=== PATIENT | female | born 1990 | race Caucasian/White ===

== ENCOUNTER → 2018-10-20 | Outpatient (CLI) | payer OTHER | LOC: FIMAGING 11:13 | PROVIDERS: ATTEND Advanced Practice Midwife | DX: Z34.93 Encounter for supervision of normal pregnancy, unspecified, third trimester (principal); Z3A.35 35 weeks gestation of pregnancy ==

== ENCOUNTER 2018-11-07 21:37 | Inpatient (IN) | payer OTHER ==
[2018-11-07] MEDS ORDERED: OXYTOCIN/RINGERS LACTATE 1,000 ML IV PRN (23:02)
[2018-11-07] MEDS ORDERED: OLIVE OIL 118 ML BTL MISC PRN (23:02)
[2018-11-07] MEDS ORDERED: LIDOCAINE 1% 300 MG/30 ML SDV SC PRN (23:02)
[2018-11-07] MEDS ORDERED: IBUPROFEN 600 MG TAB PO PRN (23:02)
[2018-11-07] MEDS ORDERED: MISOPROSTOL 200 MCG TAB PR PRN (23:02)
[2018-11-07] MEDS ORDERED: TERBUTALINE SULFATE 1 MG/ML VIAL IV PRN (23:02)
[2018-11-07] MEDS ORDERED: LR 1,000 ML IV PRN (23:02)
[2018-11-07] MEDS ORDERED: EPSOM SALT 454 GM TP PRN (23:02)
[2018-11-07 23:25] LABS: PLATELET COUNT 291 10^3/uL (150-400)
[2018-11-07] MEDS ORDERED: fentaNYL 2MCG/ML/BUP 0.1% RTU 100 ML BAG EP ONE (23:53)
--- NOTE | 2018-11-08 | PDGENHP ---
History and Physical History and Physical: Care: [facility] HPI: Patient is a 28 yo G 6 P 3 @ 38.4 weeks that presents to L&D with complaints of strong uterine contractions since 1900. She reports prodromal labor for past several days. EDC: 11/18/18 which is based on LMP: 02/03/18 which is known and consistent with Ultrasound at 6 weeks. Her is complicated by: use of tramadol. Review of Systems: Constitutional: Denies any fever, chills, or fatigue HEENT: denies any visual changes, difficulty swallowing, hearing loss Cardiovascular: Denies any chest pain, palpitations, leg swelling Respiratory: denies any cough, wheezing, or shortness of breathe GI: Denies any nausea, vomiting, diarrhea, constipation : denies any dysuria, urgency, frequency, vaginal bleeding Musculoskeletal: denies any muscle or bone pain Skin: denies any rashes Neuro: denies any headache, seizures, lightheadedness, dizziness, or loss of consciousness Psychiatric: denies any depression, anxiety, or SI/HI thoughts HISTORY: Previous OB history: 2008-05#, SAB, 2009 SAB, 2011-06# , # complicated by pelvic fracture with delivery Past medical history: endometriosis, PCOS, migraines, chronic UTIs, kidney stones, anxiety Past surgical history: explor lap 2009 for endometriosis, explor lap 2015 for hydrosalpinx. Social: Denies any alcohol, tobacco, or drug use. Family history: Father has HTN and diabetes, clotting disorder, mother and grandmother thyroidism Medications: PNV, tramadol Allergies (list reaction): NKDA LABS: Rh: A + ABS: Neg Rubella: Immune HbsAg: NR HIV: NR VDRL: NR 1hr: 77 GC: Neg Chlamydia: Neg Pap: Normal GBS: neg BMI: (prepreg) 25.2 PHYSICAL EXAM: Constitutional: WN, A&Ox3 HEENT: normocephalic atraumatic, supple Skin: Warm, dry, intact Heart: RRR, no murmur Chest: CTA-B Abdomen: Soft, nontender, gravid SVE: 4-5 per RN Extremities: trace edema, negative homans sign Neuro: grossly normal Psych: normal affect assessment: FHT baseline 125, +accels, no decels, moderate variability Contractions: toco q 2-3 min Assessment: 1) 28 yo G 6 P 3 with IUP@ 38.4 2) spontaneous labor 3) GBS neg 4) Cat 1 FHR tracing Plan: 1) Admit to L&D 2) Anticipate
[2018-11-08] MEDS ORDERED: LIDOCAINE 1% 300 MG/30 ML SDV ONE (00:20)
[2018-11-08] MEDS ORDERED: OLIVE OIL 118 ML BTL ONE (00:20)
[2018-11-08] MEDS ORDERED: AMMONIA AROMATIC 1 EACH AMP IH ONE (00:21)
[2018-11-08] MEDS ORDERED: OXYTOCIN 10 UNIT/ML VIAL ONE (00:21)
[2018-11-08] MEDS ORDERED: MISOPROSTOL 200 MCG TAB ONE (00:21)
[2018-11-08] MEDS ORDERED: TERBUTALINE SULFATE 1 MG/ML VIAL ONE (00:21)
--- NOTE | 2018-11-08 00:32 | PREANESOB ---
Obstetric Pre-Anesthesia Info - General Info Proposed Procedure: PETER for NPO Start Time: 14:00 (no solids after 14:00) : 6 Para: 3 BRIDGER: 11/18/18 Gestational Age: 38 week(s) and 3 day(s) - Info Status: Full Term Monitors: External FHR Pattern: Reassuring - Labor Status Magnesium Sulfate in Use: No Indications for Labor Analgesia: Pain Control Labor Epidural: Proposed Anesthesia ROS: h/o pelvic fx/pain after last labor. Worried about pelvic pain with pushing. Does not want much epidural block for labor, but wants a dense block for pushing. h/o anxiety, UTIs, kidney stones. No URI x2 weeks. Allergies/Adverse Reactions: Allergy/AdvReac Type Severity Reaction Status Date / Time No Known Allergies Allergy Unverified 11/07/18 21:57 Visit Medications: Generic Name Dose Route Start Last Admin Trade Name Freq PRN Reason Stop Dose Admin Lactated Ringer's 1,000 mls @ 0 mls/hr 11/07/18 23:02 Lr IV 11/08/18 23:01 PRN PRN SEE PROTOCOL CONDITIONS Protocol Per Protocol Oxytocin/Lactated Ringer's 1,000 mls @ 125 mls/hr 11/07/18 23:02 Pitocin 20 Units/Lr (Premix) IV PRN PRN Post bleeding Ibuprofen 600 mg 11/07/18 23:02 Motrin PO ONCE PRN post , pain Lidocaine HCl 300 mg 11/07/18 23:02 Lidocaine Hcl 1% SC 05/06/19 23:01 ONCE PRN episiotomy Magnesium Sulfate 454 gm 11/07/18 23:02 Epsom Salt TP 05/06/19 23:01 Q1H PRN perineal discomfort Misoprostol 800 - 1,000 mcg 11/07/18 23:02 Cytotec RI ONCE PRN Vaginal Atony/Bleeding Ahmeek Oil 118 ml 11/07/18 23:02 Sweet Oil MISC 05/06/19 23:01 ONCE PRN perineal massage Terbutaline Sulfate 0.25 mg 11/07/18 23:02 Brethine IV 05/06/19 23:01 ONCE PRN Tachysystole Discontinued Medications Generic Name Dose Route Start Last Admin Trade Name Freq PRN Reason Stop Dose Admin Ammonia (Aromatic Spirit) Confirm 11/08/18 00:21 Ammonia Aromatic Administered 11/08/18 00:22 Dose 1 each IH .STK-MED ONE Fentanyl/Bupivacaine HCl Confirm 11/07/18 23:53 Fentanyl/Bupivacaine/Ns 2 Mcg/Ml 0.1% (Premix Administered 11/07/18 23:54 Dose 100 ml EP .STK-MED ONE Lidocaine HCl Confirm 11/08/18 00:20 Lidocaine Hcl 1% Administered 11/08/18 00:21 Dose 300 mg .ROUTE .STK-MED ONE Misoprostol Confirm 11/08/18 00:21 Cytotec Administered 11/08/18 00:22 Dose 1,000 mcg .ROUTE .STK-MED ONE Ahmeek Oil Confirm 11/08/18 00:20 Sweet Oil Administered 11/08/18 00:21 Dose 118 ml .ROUTE .STK-MED ONE Oxytocin Confirm 11/08/18 00:21 Pitocin Administered 11/08/18 00:22 Dose 40 unit .ROUTE .STK-MED ONE Terbutaline Sulfate Confirm 11/08/18 00:21 Brethine Administered 11/08/18 00:22 Dose 1 mg .ROUTE .STK-MED ONE - Anesthesia History Response to Local Anesthetics: Normal Anesthesia & Operative History: No Prior Problems Family Anesthesia History: Negative - Social History Substance Use/Abuse: Denies - Vital Signs Latest Vital Signs (Nursing): See nursing flowsheet Height/Weight (Nursing): Height 162.56 cm Weight 88.904 kg Weight: 89 kg Height: 163 cm - Focused Exam Neck exam: FROM Mallampati Score: Class 2 Mouth exam: normal dental/mouth exam Pulmonary: clear to auscultation Cardiovascular: regular rate and rhythym Labs: 11/07/18 23:16 Patient ABO/Rh A POSITIVE 11/07/18 23:16 - Plan Anesthetic Plan: PETER Consent Signed and on Chart: Yes Patient/Guardian Understands and Agrees to Plan: Yes Urgent/Emergent Case: Kathy oconnor completed preop but documented later for safe timely pt care General Comments: Pt requesting minimal basal rate, with higher boluses.
--- NOTE | 2018-11-08 00:32 | OBPROG ---
Labor Progress Note Assessment/Plan: Assessment: spontaneous labor Plan: epidural 11/08/18 00:29 Subjective/Intrapartum Course: 11/08/18 00:29 Pt is comfortable with low dose epidural, knows to bolus as needed. VSS Objective: 11/07/18 23:16 Patient ABO/Rh A POSITIVE 11/07/18 23:16 - SVE Dilation (cm): 7 Effacement (%): 90 Station: 0 Membranes: AROM Amniotic Fluid Color: Clear - Contraction Pattern Assessment Current Contraction Pattern: Regular - FHR Assessment [place] FHR (bpm): 120 FHR Pattern Variability: Moderate FHR Category: 1 Oxytocin Orders Assessment - Pre-Induction/Augmentation Assessment Presentation: Vertex Gestational Age: 38 week(s) and 3 day(s) Current Contraction Pattern: Regular - Heart Rate Pattern [place] FHR Category: 1 ICD10 Worksheet Patient Problems: Problems Problem Status Onset Normal labor Acute - ICD10 Problem Qualifiers (1) Normal labor
[2018-11-08] MEDS ORDERED: ONDANSETRON 4 MG/2 ML VIAL IVP PRN (00:33)
[2018-11-08] MEDS ORDERED: NALOXONE HCL 0.4 MG/ML INJ IVP PRN (00:33)
[2018-11-08] MEDS ORDERED: PHENYLEPHRINE HCL 100 MCG/ML SYR IVP PRN (00:33)
[2018-11-08] MEDS ORDERED: LR 500 ML IV SCH (01:00)
[2018-11-08] MEDS ORDERED: fentaNYL 2MCG/ML/BUP 0.1% RTU 100 ML EP SCH (01:00)
--- NOTE | 2018-11-08 01:25 | OBDEL ---
Info Type: Vaginal Presentation at Delivery: Vertex L&D Analgesia/Anesthesia Type: Epidural GBS+: No - Hospital Course Intrapartum: 11/08/18 00:29 Pt is comfortable with low dose epidural, knows to bolus as needed. VSS 11/08/18 01:22 Progressed rapidly to complete and pushed with 2 contractions. FHT reassuring throughout labor. Indications for Delivery: Spontaneous Labor Vaginal Delivery - Delivery Provider Delivery Physician/CNM: Viky Holman - Labor and Delivery Onset of Contractions Date: 11/07/18 Onset of Contractions Time: 17:30 Onset of Contractions Type: Spontaneous Rupture of Membranes Date: 11/07/18 Rupture of Membranes Time: 23:42 Rupture of Membranes Type: Artificial Amniotic Fluid Color: Clear Dilation Complete Date: 11/07/18 Dilation Complete Time: 23:55 Placenta Delivery Date: 11/08/18 Placenta Delivery Time: 00:08 Total Hours of Labor: 6 Non-surgical Procedures: Amniotomy Vaginal Sponge Count Correct: Yes Vaginal Needle Count Correct: Yes Vaginal Sweep Performed: Yes Delivery Events: None Delivery Comment: R hand near face at time of delivery. Data BRIDGER: 11/18/18 Gestational Age: 38 week(s) and 4 day(s) [place] Delivery Date: 11/08/18 Delivery Time: 00:01 Sex of : Female Score (1 Min): 8 Score (5 Min): 9 ICD10 Worksheet Patient Problems: Problems Problem Status Onset (normal spontaneous vaginal delivery) Acute Normal labor Acute - ICD10 Problem Qualifiers (1) Normal labor (2) (normal spontaneous vaginal delivery)
[2018-11-08] MEDS ORDERED: oxyCODONE IR 5 MG TAB PO ONE ×2 (01:28→08:15)
[2018-11-08] MEDS: IBUPROFEN 600 MG TAB PO SCH ×3 (07:42→19:15)
[2018-11-08] MEDS: DOCUSATE SODIUM 100 MG CAP PO SCH ×2 (10:14→19:15)
[2018-11-08] MEDS: ACETAMINOPHEN 325 MG TAB PO SCH ×2 (14:23→18:34)
--- NOTE | 2018-11-08 20:25 | POSTANESTH ---
Post Anesthetic Evaluation Cardiovascular Status: Normal, Stable Respiratory Status: Normal, Stable Level of Consciousness/Mental Status: Other, See Comment (Pt sleeping. Interviewed pt's SO and consulted nursing notes for VS.) Pain Control: Adequate, Prn Tx Ordered Nausea/Vomiting Control: Adequate, Prn Tx Ordered Complications Possibly Related to Anesthesia: None Noted Notes: Pt ambulated today. No reports of N/V. Mild pain controlled with oral meds.
[2018-11-09] MEDS: IBUPROFEN 600 MG TAB PO SCH (06:36)
[2018-11-09 08:21] VITALS: BP 133/83
--- NOTE | 2018-11-09 11:09 | OBPP ---
Progress Note Assessment/Plan: Assessment: Plan: 11/09/18 11:08 A) PPD #1 Anemia Establishing P) Start iron bid as well as continue vitamin. Discharge home today. Follow up in the clinic week2//6. Subjective/ Course: 11/09/18 11:06 Doing great. States after pains are much better than they had been with her last 2 children. Bleeding minimal. States baby has been having some latch issues but she is confident she can work with them. Pumping now to encourage milk to come in. Desires discharge home today. Objective: 11/08/18 07:30 Patient ABO/Rh A POSITIVE 11/07/18 23:16 Temp Pulse Resp BP Pulse Ox 36.5 C 86 18 133/83 H 95 11/09/18 08:00 11/09/18 08:00 11/09/18 08:00 11/09/18 08:00 11/09/18 08:00 Breasts soft; nipples intact bilaterally Uterine Position/Fundal Height: Umbilicus -1 Uterine Tone: Firm
--- NOTE | 2018-11-09 11:10 | OBGCSDC ---
General Delivery Information - General Info : 6 Para: 4 Abortions: 1 Type: Vaginal L&D Analgesia/Anesthesia Type: Epidural, Nitrous Admission Date: 11/08/18 Labs: Patient ABO/Rh A POSITIVE 11/07/18 23:16 Hct 29.9 % (38.0-47.0) L 11/08/18 07:30 - Hospital Course Intrapartum: 11/08/18 00:29 Pt is comfortable with low dose epidural, knows to bolus as needed. VSS 11/08/18 01:22 Progressed rapidly to complete and pushed with 2 contractions. FHT reassuring throughout labor. : 11/09/18 11:06 Doing great. States after pains are much better than they had been with her last 2 children. Bleeding minimal. States baby has been having some latch issues but she is confident she can work with them. Pumping now to encourage milk to come in. Desires discharge home today. Vaginal - Delivery Provider Delivery Physician/CNM: Viky Holman - Diagnosis Labor: Spontaneous Rupture of Membranes Type: Artificial Amniotic Fluid Color: Clear Delivery Events: None - Procedures Non-surgical Procedures: Amniotomy - Delivery Non-surgical Procedures: Amniotomy Data BRIDGER: 11/18/18 Gestational Age: 38 week(s) and 5 day(s) [place] Delivery Date: 11/08/18 Delivery Time: 01:01 Sex of Infant: Female Weight (gm): 3038 g Score (1 Min): 8 Score (5 Min): 9 Discharge Information - Discharge Information Condition: Good Instruction/Follow Up: Two Weeks, Four Weeks, Six Weeks
[2018-11-09] MEDS ORDERED: FERROUS SULFATE 325 MG TAB PO SCH (21:00)
== END 2018-11-09 14:35 | disposition home or self-care (01) | DRG 807 ==
LOC: FLD 21:37 → FOB 11-08 03:00 → OBSVTOIN 11-08 06:24
PROVIDERS: ADMIT Advanced Practice Midwife; ATTEND Advanced Practice Midwife
PROC: 10907ZC Drainage of Amniotic Fluid, Therapeutic from Products of Conception, Via Natural or Artificial Opening (ICD-10-PCS; 2018-11-07)
PROC: 10E0XZZ Delivery of Products of Conception, External Approach (ICD-10-PCS; principal; 2018-11-08)
DX: O99.02 Anemia complicating childbirth (principal); Z3A.38 38 weeks gestation of pregnancy; Z37.0 Single live birth
CPT/HCPCS: J2590; J3105